=== PATIENT | male | born 1945 | race Caucasian/White ===

== ENCOUNTER 2024-12-09 06:24 | Emergency (ER) | payer MEDICARE, OTHER ==
[~2024-12-09] VITALS: Ht 175.3 cm; Wt 81.6 kg
[2024-12-09 06:29] VITALS: PULSE 76; RESP 19; TEMP 97.8; O2SAT 95
== END 2024-12-09 07:58 | disposition home or self-care (01) ==
LOC: ER 06:31
DX: S01.81XA Laceration without foreign body of other part of head, initial encounter (principal); S51.012A Laceration without foreign body of left elbow, initial encounter; W06.XXXA Fall from bed, initial encounter; Y93.84 Activity, sleeping; Y92.89 Other specified places as the place of occurrence of the external cause; E11.9 Type 2 diabetes mellitus without complications; I48.91 Unspecified atrial fibrillation; Z79.01 Long term (current) use of anticoagulants; Z86.718 Personal history of other venous thrombosis and embolism
CPT/HCPCS: 70450; 72125; 99284